=== PATIENT | female | born 1990 | race African-American/Black ===

== ENCOUNTER 2017-03-05 14:20 | Emergency (ER) | payer OTHER ==
--- NOTE | 2017-03-05 14:36 | EKG ---
[address] [address] Test Date: 2017-03-05 Test Time: 14:34:41 Pat Name: SHELBI MARTIN Department: Room: Gender: F Group Billing Coordinator: : 1990 Requested By: CARLOS PRADO Order Number: [id number] Reading MD: William Jacobs Measurements Intervals Fischer Rate: 92 P: 49 IN: 162 QRS: 1 QRSD: 74 T: 13 QT: 358 QTc: 448 Interpretive Statements SINUS RHYTHM Electronically Signed On 03-06-2017 10:47:24 CDT by William Jacobs
[2017-03-05] MEDS ORDERED: IV NORMAL SALINE 1,000ML 1,000 ML IV SCH (14:44)
[2017-03-05] MEDS ORDERED: 0.9 % SODIUM CHLORIDE 10 ML DISP.SYRIN. IV PRN (14:45)
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
[2017-03-05 15:08] LABS: BASO % 1 % (0-3); EOS # 0.1 x10^3/uL (0.0-0.7); EOS % 2 % (0-3); HEMATOCRIT 27.2 % (36.0-47.0); HEMOGLOBIN 9.7 g/dL (12.0-15.5); LYMPH # 1.3 x10^3/uL (1.0-4.8); LYMPH % 22 % (24-48); MEAN CORPUSCULAR HEMOGLOBIN 30 pg (25-35); MEAN CORPUSCULAR HGB CONC 36 g/dL (31-37); MEAN CORPUSCULAR VOLUME 83 fL (79-100); MONO # 0.5 x10^3/uL (0.0-1.1); MONO % 8 % (0-9); NEUT % 68 % (31-73); PLATELET COUNT 158 x10^3/uL (140-400); RED BLOOD COUNT 3.28 x10^6/uL (3.50-5.40); RED CELL DISTRIBUTION WIDTH 13.1 % (11.5-14.5); WHITE BLOOD COUNT 5.8 x10^3/uL (4.0-11.0)
[2017-03-05 15:11] LABS: CALCIUM 8.7 mg/dL (8.5-10.1); CREATININE 0.7 mg/dL (0.6-1.0); GFR 121.5; POTASSIUM 3.6 mmol/L (3.5-5.1)
[2017-03-05] MEDS ORDERED: IPRATRPIUM/ALBUTEROL 0.5/2.5MG 3 ML NEBU. NEB ONE (15:15)
[2017-03-05] MEDS ORDERED: ONDANSETRON PF 4 MG/2 ML VIAL. IV ONE (15:15)
[2017-03-05 15:35] VITALS: BP 89/51
== END 2017-03-05 15:35 | disposition short-term general hospital (02) ==
LOC: ER 14:20
DX: O20.0 Threatened abortion (principal); R10.32 Left lower quadrant pain; J40 Bronchitis, not specified as acute or chronic; I95.9 Hypotension, unspecified; O99.332 Smoking (tobacco) complicating pregnancy, second trimester; Z3A.27 27 weeks gestation of pregnancy
CPT/HCPCS: 36415; 80048; 85027; 93005; 94640; 96361; 96374; 99285; J2405; J7620; J7030

== ENCOUNTER 2017-03-14 17:18 | Emergency (ER) | payer OTHER ==
[~2017-03-14] VITALS: Ht 152.4 cm; Wt 80.3 kg
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
[2017-03-14 18:05] VITALS: BP 94/41
== END 2017-03-14 18:10 | disposition short-term general hospital (02) ==
LOC: EEVIPCON 17:18 → ER 17:18
DX: O9A.213 Injury, poisoning and certain other consequences of external causes complicating pregnancy, third trimester (principal); S39.91XA Unspecified injury of abdomen, initial encounter; O60.14X0 Preterm labor third trimester with preterm delivery third trimester, not applicable or unspecified; O99.333 Smoking (tobacco) complicating pregnancy, third trimester; Z3A.29 29 weeks gestation of pregnancy; Y08.89XA Assault by other specified means, initial encounter; Y93.89 Activity, other specified; Y92.89 Other specified places as the place of occurrence of the external cause; Y99.8 Other external cause status
CPT/HCPCS: 99285

== ENCOUNTER 2017-12-10 12:15 | Emergency (ER) | payer OTHER ==
[~2017-12-10] VITALS: Ht 152.4 cm; Wt 76.2 kg
[2017-12-10] MEDS ORDERED: IV NORMAL SALINE 1,000ML 1,000 ML IV ONE (13:15)
[2017-12-10] MEDS ORDERED: PROCHLORPERAZINE 10 MG/2 ML VIAL. IV ONE (13:30)
[2017-12-10] MEDS ORDERED: diphenhydrAMINE 50 MG/ML VIAL IVP ONE (13:30)
[2017-12-10 13:43] LABS: BACTERIA,URINE MOD /HPF (0-FEW); BILIRUBIN,URINE NEG (NEG); CLARITY,URINE CLOUDY; COLOR,URINE YELLOW; GLUCOSE,URINE NEG (NEG); NITRITE,URINE NEG (NEG); SQUAMOUS EPITHELIAL CELL,UR MANY /LPF; TRICHOMONAS,URINE PRESENT; UROBILINOGEN,URINE 0.2 mg/dL (0.2 mg/dL); WBC,URINE 20-40 /HPF (0-4)
[2017-12-10] MEDS ORDERED: KETOROLAC 30 MG/ML VIAL. IV ONE (13:45)
[2017-12-10] MEDS ORDERED: cefTRIAXone IV Push 1 GM VIAL. IVP ONE (14:00)
[2017-12-10 14:33] VITALS: BP 106/67
[2017-12-10] MEDS ORDERED: TRAM50TA PO (14:48)
[2017-12-10] MEDS ORDERED: CEPH-264 PO (14:48)
--- NOTE | 2017-12-10 14:48 | PHYS DOC ---
Past History Past Medical History: Bronchitis Past Surgical History: No Surgical History Smoking: Cigarettes, Less than 1pk/day Alcohol Use: None Drug Use: None Adult General Chief Complaint Chief Complaint: HEADACHE HPI HPI Patient is a 27 year old female who presents with headache. The patient reports 5 day history of intermittent sharp stabbing pains to right occiput. Not sudden in onset, not the worst headache of her life. The pain actually seems to be greatest on her scalp but it also gives her a headache. She denies fevers/chills, neck stiffness, vision changes, nasal congestion, sore throat, cough, nausea/vomiting, extremity numbness/weakness. History of headaches but they were not similar to this headache. Took multiple over the counter medications including aleve without relief of symptoms. Review of Systems Review of Systems Constitutional: Denies fever or chills Eyes: Denies change in visual acuity HENT: Denies nasal congestion or sore throat Respiratory: Denies cough or shortness of breath Cardiovascular: Denies chest pain GI: Denies abdominal pain, nausea, vomiting : Denies dysuria or hematuria Musculoskeletal: Denies back pain or joint pain Integument: Denies rash or skin lesions Neurologic: Reports headache, denies focal weakness or sensory changes All other systems were reviewed and found to be within normal limits, except as documented in this note. Current Medications Current Medications Current Medications Medications (Trade) Dose Ordered Sig/Jada Start Time Stop Time Status Last Admin Dose Admin Ceftriaxone Sodium 1 gm/ Sodium Chloride 50 ml @ 100 mls/hr 1X ONCE 12/10/17 14:00 12/10/17 14:00 DC Ceftriaxone Sodium (Rocephin) 1 gm 1X ONCE 12/10/17 14:00 12/10/17 14:01 DC 12/10/17 14:02 1 GM Diphenhydramine HCl (Benadryl) 25 mg 1X ONCE 12/10/17 13:30 12/10/17 13:31 DC 12/10/17 13:41 25 MG Ketorolac Tromethamine (Toradol) 30 mg 1X ONCE 12/10/17 13:45 12/10/17 13:46 DC 12/10/17 13:42 30 MG Prochlorperazine Edisylate (Compazine) 10 mg 1X ONCE 12/10/17 13:30 12/10/17 13:31 DC 12/10/17 13:39 10 MG Sodium Chloride 1,000 ml @ 1,000 mls/hr 1X ONCE 12/10/17 13:15 12/10/17 14:14 DC 12/10/17 13:37 1,000 MLS/HR Allergies Allergies Allergies Coded Allergies Type Severity Reaction Last Updated Verified No Known Drug Allergies 03/03/16 No Physical Exam Physical Exam Constitutional: Well developed, well nourished, no acute distress, non-toxic appearance. HENT: Normocephalic, atraumatic, bilateral external ears normal, oropharynx moist, no tonsillar enlargement/exudate, nose normal. Eyes: PERRLA, EOMI, conjunctiva normal, no discharge. Neck: supple, no stridor. no meningismus Cardiovascular: RRR, no murmurs, no edema. Lungs & Thorax: LCTAB, no wheezing, no respiratory distress. Abdomen: soft, nontender, nondistended. Skin: Warm, dry, no erythema, no rash. Back: No tenderness. Extremities: No tenderness, no edema. Neurologic: Alert and oriented X 3, cranial nerves 2-12 grossly intact, symmetric strength/sensation to upper & lower extremities, no focal deficits noted. Psychologic: Affect normal, judgement normal, mood normal. Current Patient Data Lab Results Laboratory Tests Test 12/10/17 13:13 12/10/17 13:24 Urine Collection Type Unknown Urine Color Yellow Urine Clarity Cloudy Urine pH 5.0 Urine Specific [place] 1.015 Urine Protein Neg (NEG-TRACE) Urine Glucose (UA) Neg mg/dL (NEG) Urine Ketones (Stick) Neg mg/dL (NEG) Urine Blood Neg (NEG) Urine Nitrite Neg (NEG) Urine Bilirubin Neg (NEG) Urine Urobilinogen Dipstick 0.2 mg/dL (0.2 mg/dL) Urine Leukocyte Esterase Mod (NEG) Urine RBC 1-2 /HPF (0-2) Urine WBC 20-40 /HPF (0-4) Urine Squamous Epithelial Cells Many /LPF Urine Bacteria Mod /HPF (0-FEW) Urine Mucus Slight /LPF Urine Trichomonas Present POC Urine HCG, Qualitative hcg negative (Negative) EKG EKG [] Radiology/Procedures Radiology/Procedures [] Course & Med Decision Making Course & Med Decision Making Pertinent Labs and Imaging studies reviewed. (See chart for details) The patient visits with headache. Not sudden onset or severe, no neurologic deficits or fever. She is well appearing, resting comfortably, stable vitals. Gave IV medications for relief of headache. She had a urinary tract infection. Administered Rocephin here and discharged with prescription for Keflex. She improved after treatment here. Recommend rest, hydration, Tylenol or ibuprofen for headache, tramadol for severe headache. Follow-up with primary care physician if headaches continue for additional recommendations. Return to the emergency department for sudden onset or severe headache, focal neurologic deficit, altered mental status, uncontrolled vomiting, severe abdominal pain or flank pain, any otherwise worsening condition. Discharged home in stable and improved condition. [] Dragon Disclaimer Dragon Disclaimer This electronic medical record was generated, in whole or in part, using a voice recognition dictation system. Departure Departure: Impression: Primary Impression: Headache Additional Impression: UTI (urinary tract infection) Disposition: 01 HOME, SELF-CARE Condition: STABLE Referrals: PCP,NO (PCP) Patient Instructions: General Headache Without Cause, [id number], Urinary Tract Infection, [id number] Additional Instructions: You were seen in the emergency department today for headache. You had a urinary tract infection in your symptoms improved with treatment here. Please rest, drink fluids to stay hydrated, take the prescribed antibiotic, use Tylenol or ibuprofen for pain or tramadol at severe. Follow-up with primary care physician in 2-3 days. Return to the emergency department for sudden onset headache or worst headache of your life, confusion, numbness or weakness in arms or legs, uncontrolled vomiting, severe abdominal pain or flank pain, any otherwise worsening condition. Scripts Tramadol Hcl (TRAMADOL HCL) 50 Mg Tablet 50 MG PO PRN Q6HRS Y for PAIN, #10 TAB Prov: HARPREET WEINSTEIN MD 12/10/17 Cephalexin (KEFLEX) 500 Mg Capsule 1 CAP PO BID, #14 CAP Prov: HARPERET WEINSTEIN MD 12/10/17 Problem Qualifiers Primary Impression: Headache Headache type: unspecified Headache chronicity pattern: unspecified pattern Intractability: not intractable Qualified Codes: R51 - Headache Additional Impression: UTI (urinary tract infection) Urinary tract infection type: site unspecified Hematuria presence: without hematuria Qualified Codes: N39.0 - Urinary tract infection, site not specified HARPREET WEINSTEIN MD Dec 10, 2017 14:48
== END 2017-12-10 14:55 | disposition home or self-care (01) ==
LOC: ER 12:15
DX: R51 Headache (principal); N39.0 Urinary tract infection, site not specified; F17.210 Nicotine dependence, cigarettes, uncomplicated
CPT/HCPCS: 81001; 81025; 87086; 96361; 96374; 96375; 99284; J0696; J0780; J1200; J1885; J7030

== ENCOUNTER 2018-08-01 16:05 | Emergency (ER) | payer OTHER ==
[~2018-08-01] VITALS: Ht 152.4 cm; Wt 76.2 kg
[~2018-08-01 16:05] MED LIST: CEPH-264 PO; TRAM50TA PO
--- NOTE | 2018-08-01 16:49 | PHYS DOC ---
Past History Past Medical History: Bronchitis Past Surgical History: No Surgical History Smoking: Cigarettes, Less than 1pk/day Alcohol Use: Occasionally Drug Use: None Adult General Chief Complaint Chief Complaint: BACK PAIN OR INJURY [facility] HPI Patient is a previously healthy 28-year-old female who presents to the emergency department for evaluation. She states that for the past 2 days, she has had right upper back pain, worse with movements and deep breathing. She denies any shortness of breath. She states that the pain became severe today. She has not had any dizziness or lightheadedness, numbness, or focal weakness. Movements and deep breathing worsen her pain. There are no other alleviating factors to her symptoms. The patient denies any traumatic injuries. She does not use any contraceptive medications. She is a smoker. Review of Systems Review of Systems Constitutional: Denies fever or chills [] Eyes: Denies change in visual acuity, redness, or eye pain [] HENT: Denies nasal congestion or sore throat [] Respiratory: Denies cough or shortness of breath [] Cardiovascular: No additional information not addressed in HPI [] GI: Denies abdominal pain, nausea, vomiting, bloody stools or diarrhea [] : Denies dysuria or hematuria [] Musculoskeletal: Denies back pain or joint pain , except as noted in the history of present illness.[] Integument: Denies rash or skin lesions [] Neurologic: Denies headache, focal weakness or sensory changes [] Endocrine: Denies polyuria or polydipsia [] All other systems were reviewed and found to be within normal limits, except as documented in this note. Allergies Allergies Allergies Coded Allergies Type Severity Reaction Last Updated Verified No Known Drug Allergies 03/03/16 No Physical Exam Physical Exam PHYSICAL EXAM: CONSTITUTIONAL: Well developed, well nourished HEAD: normocephalic, atraumatic EENT: PERRL, EOMI. Conjunctivae normal color, sclerae non-icteric; moist mucous membranes. NECK: Supple, non-tender; no meningismus. LUNGS: Lungs CTA, breathing even and unlabored. Normal air movement. HEART: Regular rate and rhythm, no murmur CHEST: No deformity; non-tender ABDOMEN: The abdomen is soft, and non-tender, no masses or bruits. The right upper quadrant of the abdomen is nontender. EXTREM: Normal ROM; no deformity, no calf tenderness. Normal pulses palpable in all extremities. There is no pedal edema. SKIN: No rash; no diaphoresis NEURO: Alert; normal speech and cognition; CN's grossly intact; strength grossly intact without focal deficit. BACK: No CVA TTP. There is reproducible tenderness to palpation of the right periscapular area, worse with movement of the right upper extremity, as well as deep breathing. There is no midline vertebral tenderness to palpation to the thoracic or lumbar spine. Current Patient Data Lab Results Laboratory Tests Test 08/01/18 16:51 White Blood Count 4.3 x10^3/uL Red Blood Count 4.44 x10^6/uL Hemoglobin 12.5 g/dL Hematocrit 36.8 % Mean Corpuscular Volume 83 fL Mean Corpuscular Hemoglobin 28 pg Mean Corpuscular Hemoglobin Concent 34 g/dL Red Cell Distribution Width 13.8 % Platelet Count 242 x10^3/uL Neutrophils (%) (Auto) 56 % Lymphocytes (%) (Auto) 32 % Monocytes (%) (Auto) 9 % Eosinophils (%) (Auto) 2 % Basophils (%) (Auto) 1 % Neutrophils # (Auto) 2.4 x10^3uL Lymphocytes # (Auto) 1.4 x10^3/uL Monocytes # (Auto) 0.4 x10^3/uL Eosinophils # (Auto) 0.1 x10^3/uL Basophils # (Auto) 0.0 x10^3/uL D-Dimer (Maryjane) 0.57 mg/L Sodium Level 140 mmol/L Potassium Level 3.9 mmol/L Chloride Level 105 mmol/L Carbon Dioxide Level 28 mmol/L Anion Gap 7 Blood Urea Nitrogen 18 mg/dL Creatinine 1.1 mg/dL Estimated GFR (Cockcroft-Gault) 71.1 BUN/Creatinine Ratio 16 Glucose Level 86 mg/dL Calcium Level 8.8 mg/dL Total Bilirubin 0.2 mg/dL Aspartate Amino Transf (AST/SGOT) 12 U/L Alanine Aminotransferase (ALT/SGPT) 20 U/L Alkaline Phosphatase 79 U/L Creatine Kinase 81 U/L Creatine Kinase MB (Mass) 0.8 ng/mL Creatine Kinase MB Relative Index 1.0 % Troponin I Quantitative < 0.017 ng/mL Total Protein 7.7 g/dL Albumin 3.5 g/dL Albumin/Globulin Ratio 0.8 Lipase 120 U/L Current Medications Medications (Trade) Dose Ordered Sig/Jada Route PRN Reason Start Time Stop Time Status Last Admin Dose Admin Ketorolac Tromethamine (Toradol 30mg Vial) 30 mg STK-MED ONCE .ROUTE 08/01/18 17:17 08/01/18 17:18 DC Ketorolac Tromethamine (Toradol 30mg Vial) 30 mg 1X ONCE IV 08/01/18 17:30 08/01/18 17:31 DC 08/01/18 17:21 Iohexol (Omnipaque 300 Mg/ml) 75 ml 1X ONCE IV 08/01/18 18:00 08/01/18 18:01 UNV EKG EKG [NSR @ 60 BPM, borderline leftward axis, normal intervals, there are no acute ischemic ST/T changes.] Radiology/Procedures Radiology/Procedures [PROCEDURE: CHEST PA & LATERAL CHEST PA LATERAL History: BACK PAIN WORSE WHEN BREATHING. Comparison: None. Heart size: Within normal limits. Katelyn/mediastinum: Within normal limits Lungs: No focal airspace consolidation. Small nodular opacity identified just inferior to the right third rib, doubtful significance. Pleura: No evidence of pleural effusion. Pneumothorax: None visualized Bones: Regional skeleton appears grossly intact. Miscellaneous: None Impression: 1. No acute radiographic findings. 2. Small nodular opacity just inferior to the right third rib, less than 1 cm, doubtful clinical significance.] Impressions: CT PE protocol negative Course & Med Decision Making Course & Med Decision Making Pertinent Labs and Imaging studies reviewed. (See chart for details) [6:00 PM: The patient's condition remained stable. Urinalysis and CT ANGIO chest are currently pending. Care will be turned over to Dr. Larry at shift change, pending lab and imaging and final disposition. Report given.] Diagnosis pleuritic chest pain UTI Patient will be placed on Bactrim, Mobic, Tylenol No. 3 I advised the patient to follow-up with her primary care provider come back to the emergency department or follow-up with her primary care provider if her symptoms are worse or not any better Dragon Disclaimer Dragon Disclaimer This electronic medical record was generated, in whole or in part, using a voice recognition dictation system. Departure Departure: Impression: Primary Impression: Upper back pain Disposition: HOME, SELF-CARE Condition: GOOD Referrals: PCP,NO (PCP) Patient was advised to follow-up with primary care provider Scripts Sulfamethoxazole/Trimethoprim (BACTRIM DS TABLET) 1 Each Tablet 1 TAB PO BID, #14 TAB Prov: PRAVEENA LARRY MD 08/01/18 Meloxicam (MOBIC) 7.5 Mg Tablet 1 TAB PO DAILY, #30 TAB Prov: PRAVEENA LARRY MD 08/01/18 Acetaminophen With Codeine (TYLENOL WITH CODEINE #3 TABLET) 1 Each Tablet 1 TAB PO Q4-6HRS, #20 TAB Prov: PRAVEENA LARRY MD 08/01/18 JOSE VALVERDE MD Aug 01, 2018 16:49 PRAVEENA LARRY MD Aug 01, 2018 20:32
--- NOTE | 2018-08-01 17:01 | EKG ---
[address] [address] Test Date: 2018-08-01 Test Time: 17:00:40 Pat Name: SHELBI MARTIN Department: Room: Gender: F [employer]: : 1990 Requested By: JOSE VALVERDE Order Number: [id number] Reading MD: William Jacobs MD Measurements Intervals [place] Rate: 60 P: 38 OR: 188 QRS: -2 QRSD: 82 T: 6 QT: 436 QTc: 436 Interpretive Statements SINUS RHYTHM Electronically Signed On 08-05-2018 8:45:37 CDT by William Jacobs MD
[2018-08-01 17:15] LABS: BASO % 1 % (0-3); EOS # 0.1 x10^3/uL (0.0-0.7); EOS % 2 % (0-3); HEMATOCRIT 36.8 % (36.0-47.0); HEMOGLOBIN 12.5 g/dL (12.0-15.5); LYMPH # 1.4 x10^3/uL (1.0-4.8); LYMPH % 32 % (24-48); MEAN CORPUSCULAR HEMOGLOBIN 28 pg (25-35); MEAN CORPUSCULAR HGB CONC 34 g/dL (31-37); MEAN CORPUSCULAR VOLUME 83 fL (79-100); MONO # 0.4 x10^3/uL (0.0-1.1); MONO % 9 % (0-9); NEUT # 2.4 x10^3uL (1.8-7.7); NEUT % 56 % (31-73); PLATELET COUNT 242 x10^3/uL (140-400); RED BLOOD COUNT 4.44 x10^6/uL (3.50-5.40); RED CELL DISTRIBUTION WIDTH 13.8 % (11.5-14.5); WHITE BLOOD COUNT 4.3 x10^3/uL (4.0-11.0)
[2018-08-01] MEDS ORDERED: KETOROLAC 30 MG/ML VIAL. ONE (17:17)
--- NOTE | 2018-08-01 17:27 | RAD ---
CHEST PA LATERAL History: BACK PAIN WORSE WHEN BREATHING. Comparison: None. Heart size: Within normal limits. Katelyn/mediastinum: Within normal limits Lungs: No focal airspace consolidation. Small nodular opacity identified just inferior to the right third rib, doubtful significance. Pleura: No evidence of pleural effusion. Pneumothorax: None visualized Bones: Regional skeleton appears grossly intact. Miscellaneous: None Impression: 1. No acute radiographic findings. 2. Small nodular opacity just inferior to the right third rib, less than 1 cm, doubtful clinical significance. Electronically signed by: Christopher Short MD (08/01/2018 5:24 PM) [facility]
[2018-08-01] MEDS ORDERED: KETOROLAC 30 MG/ML VIAL. IV ONE (17:30)
[2018-08-01 17:34] LABS: ALBUMIN 3.5 g/dL (3.4-5.0); ALBUMIN/GLOBULIN RATIO 0.8 (1.0-1.7); CALCIUM 8.8 mg/dL (8.5-10.1); CREATININE 1.1 mg/dL (0.6-1.0); GFR 71.1; POTASSIUM 3.9 mmol/L (3.5-5.1); TOTAL BILIRUBIN 0.2 mg/dL (0.2-1.0); TOTAL PROTEIN 7.7 g/dL (6.4-8.2)
[2018-08-01] MEDS ORDERED: IOHEXOL 300 MG/ML 75 ML VIAL. IV ONE (18:15)
[2018-08-01] MEDS ORDERED: MORPHINE SULFATE 4 MG/ML DISP.SYRIN. IV ONE (18:15)
[2018-08-01] MEDS ORDERED: IV NORMAL SALINE 1,000ML 1,000 ML IV ONE (18:15)
[2018-08-01 18:32] LABS: BACTERIA,URINE FEW /HPF (0-FEW); BILIRUBIN,URINE NEG (NEG); CLARITY,URINE HAZY; COLOR,URINE YELLOW; GLUCOSE,URINE NEG (NEG); NITRITE,URINE NEG (NEG); RBC,URINE 0 /HPF (0-2); SQUAMOUS EPITHELIAL CELL,UR FEW /LPF; TRICHOMONAS,URINE PRESENT; U PREG PATIENT NEGATIVE (NEG); UROBILINOGEN,URINE 0.2 mg/dL (0.2 mg/dL)
--- NOTE | 2018-08-01 19:33 | RAD ---
EXAM: CT ANGIOGRAPHY OF THE CHEST WITH AND WITHOUT INTRAVENOUS CONTRAST. HISTORY: Back pain, pleuritic chest pain, elevated d-dimer. TECHNIQUE: Computed tomographic angiography of the chest was performed before and after the intravenous administration of 75 mL Omnipaque 300. 3-D maximum intensity projections were also performed. COMPARISON: None. FINDINGS: Images of the upper abdomen reveal no acute abnormality. Bone windows reveal no suspicious lesions. No pulmonary emboli are identified. There is no aortic dissection or aneurysm. Is mild regional soft tissue density within the anterior mediastinal fat suggests a thymic remnant or rebound thymic hyperplasia. Transaxially the region measures 4.1 x 1.9 cm. There are no pathologically enlarged mediastinal or axillary lymph nodes. There is no pleural or pericardial effusion. The heart is not enlarged. Lung windows reveal no infiltrates. IMPRESSION: 1. No pulmonary embolism. 2. A region of soft tissue density within the anterior mediastinal fat is consistent with a thymic remnant or rebound thymic hyperplasia. Correlate for potential causes. Follow-up is suggested to exclude a thymic lesion given this appearance. *One or more of the following individualized dose reduction techniques were utilized for this examination: 1. Automated exposure control. 2. Adjustment of the mA and/or kV according to patient size. 3. Use of iterative reconstruction technique. Electronically signed by: Breanna Weaver MD (08/01/2018 7:30 PM) [facility]
[2018-08-01 20:27] VITALS: BP 109/75
[2018-08-01] MEDS ORDERED: ACET-704 PO (20:32)
[2018-08-01] MEDS ORDERED: SULF1TAB24 PO (20:32)
[2018-08-01] MEDS ORDERED: MELO7.5T5 PO (20:32)
[2018-08-01] MEDS ORDERED: METR500T PO (20:44)
== END 2018-08-01 20:45 | disposition home or self-care (01) ==
LOC: ER 16:05
DX: N39.0 Urinary tract infection, site not specified (principal); R07.89 Other chest pain; M54.6 Pain in thoracic spine; F17.210 Nicotine dependence, cigarettes, uncomplicated
CPT/HCPCS: 36415; 71046; 71275; 80053; 81001; 81025; 82553; 83690; 84484; 85025; 85379; 87086; 93005; 96374; 96375; 99285; J1885; J2270; Q9967; J7030

== ENCOUNTER 2021-08-07 19:21 | Emergency (ER) | payer OTHER ==
[~2021-08-07] VITALS: Ht 152.4 cm; Wt 112.6 kg
[~2021-08-07 19:21] MED LIST changes: +ACET-704 PO; +MELO7.5T5 PO; +METR500T PO; +SULF1TAB24 PO
[2021-08-07 19:26] VITALS: BP 113/45
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
[2021-08-07] MEDS ORDERED: HYDROcodone/APAP 5/325MG 1 TAB TABLET PO ONE (20:15)
[2021-08-07] MEDS ORDERED: HYDR-2155 PO (20:15)
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
== END 2021-08-07 21:30 | disposition home or self-care (01) ==
LOC: ER 19:21
DX: S82.101A Unspecified fracture of upper end of right tibia, initial encounter for closed fracture (principal); F17.210 Nicotine dependence, cigarettes, uncomplicated; V89.2XXA Person injured in unspecified motor-vehicle accident, traffic, initial encounter; Y93.I9 Activity, other involving external motion; Y92.89 Other specified places as the place of occurrence of the external cause; Y99.8 Other external cause status
CPT/HCPCS: 29505; 73562; 99283